=== PATIENT | male | born 1960 | race Caucasian/White ===

== ENCOUNTER 2018-01-17 05:37 | Emergency (ER) | payer SELFPAY ==
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
[2018-01-17] MEDS ORDERED: DIAZEPAM 5 MG TABLET ONE (06:51)
[2018-01-17 07:04] VITALS: BP 160/107; TEMP 98.3; O2SAT 97
== END 2018-01-17 07:00 | disposition home or self-care (01) ==
LOC: ER 05:37
DX: M79.1 Myalgia (principal); V43.52XA Car driver injured in collision with other type car in traffic accident, initial encounter; Y92.410 Unspecified street and highway as the place of occurrence of the external cause; I10 Essential (primary) hypertension
CPT/HCPCS: 99283

== ENCOUNTER 2020-01-21 07:56 | Emergency (ER) | payer SELFPAY ==
--- NOTE | 2020-01-21 09:56 | EDPHYS ---
Physician Documentation [facility] Name: Quincy Hayes Age: 59 yrs Sex: Male : 1960 Arrival Date: 01/21/2020 Time: 07:59 Bed 4 Private MD: None, None ED Physician Kenji Logan HPI: 01/20 08:30 This 59 yrs old Male presents to ER via Ambulatory with complaints of pm1 Headache, Decreased Appetite. 08:30 The patient complains of pain to the forehead. The patient describes the headache as pm1 aching, mild. 08:30 Onset: The symptoms/episode began/occurred 2 day(s) ago. Severity of symptoms: in the pm1 emergency department the pain has resolved. 08:30 Associated signs and symptoms: Pertinent positives: Decreased appetite, chills, pm1 Pertinent negatives: fever, nausea, rash, vomiting, Diarrhea. The symptoms are alleviated by nothing. the symptoms are aggravated by nothing. It is unknown whether or not the patient has recently seen a physician. Patient presents to the ER with complaints of headache, decreased appetite and chills. Patient has had decreased appetite for the past 2 days and reports that he has only eaten 3 eggs in that time frame. This morning he went to [employer] and ate some tortilla soup. Patient reports that he had chills after eating at the restaurant so he came to the ER for the purpose of getting tested for covid 19. Patient reports that his headache has resolved. Historical: - Allergies: 08:12 No Known Allergies; ss - PMHx: 08:12 Hypertension; ADD/ADHD; ss - Immunization history:: Adult Immunizations up to date. - Social history:: Smoking status: Patient denies any tobacco usage or history of. Patient uses street drugs, marijuana, synthetic marijuana . ROS: 08:30 Eyes: Negative for injury, pain, redness, and discharge, ENT: Negative for injury, pm1 pain, and discharge, Neck: Negative for injury, pain, and swelling, Cardiovascular: Negative for chest pain, palpitations, and edema, Respiratory: Negative for shortness of breath, cough, wheezing, and pleuritic chest pain, Abdomen/GI: Negative for abdominal pain, nausea, vomiting, diarrhea, and constipation, Back: Negative for injury and pain, MS/Extremity: Negative for injury and deformity, Skin: Negative for injury, rash, and discoloration. 08:30 Constitutional: Positive for body aches, chills, poor PO intake, Negative for fever. 08:30 Neuro: Positive for headache, Negative for dizziness, gait disturbance, numbness, weakness. Exam: 08:30 Constitutional: This is a well developed, well nourished patient who is awake, alert, pm1 and in no acute distress. Head/Face: Normocephalic, atraumatic. Neck: Trachea midline, no thyromegaly or masses palpated, and no cervical lymphadenopathy. Supple, full range of motion without nuchal rigidity, or vertebral point tenderness. No Meningismus. Chest/axilla: Normal chest wall appearance and motion. Nontender with no deformity. No lesions are appreciated. Cardiovascular: Regular rate and rhythm with a normal S1 and S2. No gallops, murmurs, or rubs. Normal PMI, no JVD. No pulse deficits. Respiratory: Lungs have equal breath sounds bilaterally, clear to auscultation and percussion. No rales, rhonchi or wheezes noted. No increased work of breathing, no retractions or nasal flaring. Abdomen/GI: Soft, non-tender, with normal bowel sounds. No distension or tympany. No guarding or rebound. No evidence of tenderness throughout. Back: No spinal tenderness. No costovertebral tenderness. Full range of motion. Skin: Warm, dry with normal turgor. Normal color with no rashes, no lesions, and no evidence of cellulitis. MS/ Extremity: Pulses equal, no cyanosis. Neurovascular intact. Full, normal range of motion. 08:30 Neuro: Exam negative for acute changes, Orientation: is normal, Motor: is normal, moves all fours. Vital Signs: 08:09 BP 150 / 102; Pulse 82; Resp 18; Temp 98.5(TE); Pulse Ox 99% on R/A; Weight 86.18 kg; ss Height 6 ft. 2 in. (187.96 cm); 08:09 Body Mass Index 24.39 (86.18 kg, 187.96 cm) ss MDM: 08:19 Patient medically screened. pm1 08:28 Data reviewed: vital signs. Data interpreted: Pulse oximetry: on room air is 99 %. pm1 Interpretation: normal. 08:30 ED course: Patient does not want any imaging or labs. He just wants testing for covid pm1 19. 08:36 ED course: Informed that he can go get covid 19 screening at any one of the listed pm1 facilities on our ER flier that lists facilities capable of covid 19 screening in [facility]. I informed him that it would likely be financially cheaper and that I don't get the result for the screen prior to ER disposition. He said that he would like to be screen here regardless. 09:54 Counseling: I had a detailed discussion with the patient and/or guardian regarding: the pm1 historical points, exam findings, and any diagnostic results supporting the discharge/admit diagnosis, lab results, the need for outpatient follow up, to return to the emergency department if symptoms worsen or persist or if there are any questions or concerns that arise at home, Pending covid results. 01/20 08:28 Order name: Flu; Complete Time: 09:54 pm1 01/20 08:28 Order name: COVID-19 pm1 Administered Medications: No medications were administered Disposition: 19:30 Co-signature as Attending Physician, Kenji Logan MD. [email or web address] Disposition: 01/21/20 09:55 Discharged to Home. Impression: Other symptoms and signs concerning food and fluid intake - decreased appetite, Headache. - Condition is Stable. - Discharge Instructions: General Headache Without Cause. - Medication Reconciliation Form, Thank You Letter, Antibiotic Education, Prescription Opioid Use, Work release form form. - Follow up: Emergency Department; When: As needed; Reason: Worsening of condition. Follow up: Private Physician; When: 2 - 3 days; Reason: Recheck today's complaints, Continuance of care, Re-evaluation by your physician. - Problem is new. - Symptoms have improved. Signatures: Dispatcher [employer] EDMS Gracie Cruz RN RN ss Marinas, Patrick, CARMEN SHIRT TRIMMER pm1 Kenji Logan MD MD mh7 Corrections: (The following items were deleted from the chart) 08:39 08:30 The patient describes the headache as aching, mild, pm1 pm1 09:57 09:55 01/21/2020 09:55 Discharged to Home. Impression: Headache. Condition is Stable. pm1 Forms are Medication Reconciliation Form, Thank You Letter, Antibiotic Education, Prescription Opioid Use. Follow up: Emergency Department; When: As needed; Reason: Worsening of condition. Follow up: Private Physician; When: 2 - 3 days; Reason: Recheck today's complaints, Continuance of care, Re-evaluation by your physician. Problem is new. Symptoms have improved. pm1 10:26 09:57 01/21/2020 09:55 Discharged to Home. Impression: Other symptoms and signs ss concerning food and fluid intake - decreased appetiteHeadache. Condition is Stable. Forms are Medication Reconciliation Form, Thank You Letter, Antibiotic Education, Prescription Opioid Use. Follow up: Emergency Department; When: As needed; Reason: Worsening of condition. Follow up: Private Physician; When: 2 - 3 days; Reason: Recheck today's complaints, Continuance of care, Re-evaluation by your physician. Problem is new. Symptoms have improved. pm1
--- NOTE | 2020-01-21 09:56 | ER ---
Nurse's Notes [facility] Name: Quincy Hayes Age: 59 yrs Sex: Male : 1960 Arrival Date: 01/21/2020 Time: 07:59 Bed 4 Private MD: None, None Diagnosis: Headache;Other symptoms and signs concerning food and fluid intake-decreased appetite Presentation: 01/20 08:09 Chief complaint: Patient states: mild headache and decreased appetite that began 2 days ss ago. Denies cough, fever. Coronavirus screen: Proceed with normal triage. Patient denies a cough. Patient denies shortness of breath or difficulty breathing. Patient denies measured and/or subjective temperature greater than 100.4F prior to today's visit. Patient denies travel on a cruise ship or to a country the [facility] currently lists as an affected area. Patient denies contact with known and/or suspected case of COVID-19. Ebola Screen: Patient denies exposure to infectious person. Patient denies travel to an Ebola-affected area in the 21 days before illness onset. Initial Sepsis Screen: Does the patient meet any 2 criteria? No. Patient's initial sepsis screen is negative. Does the patient have a suspected source of infection? No. Patient's initial sepsis screen is negative. Risk Assessment: Do you want to hurt yourself or someone else? Patient reports no desire to harm self or others. Onset of symptoms was January 17, 2020. 08:09 Method Of Arrival: Ambulatory ss 08:09 Acuity: MADHU 4 ss Historical: - Allergies: 08:12 No Known Allergies; ss - PMHx: 08:12 Hypertension; ADD/ADHD; ss - Immunization history:: Adult Immunizations up to date. - Social history:: Smoking status: Patient denies any tobacco usage or history of. Patient uses street drugs, marijuana, synthetic marijuana . Screenin:18 Abuse screen: Denies threats or abuse. Nutritional screening: No deficits noted. tw2 Tuberculosis screening: No symptoms or risk factors identified. Fall Risk None identified. Assessment: 09:00 General: Appears in no apparent distress. comfortable, well developed, Behavior is sv cooperative, appropriate for age. General: Reports decreased appetite for 2 days. Pain: Complains of pain in forehead. Neuro: Level of Consciousness is awake, alert, obeys commands, Oriented to person, place, time, situation, Moves all extremities. Full function Gait is steady, Speech is normal, Reports headache frontal area. Respiratory: Airway is patent Respiratory effort is even, unlabored, Respiratory pattern is regular, symmetrical. Derm: Skin is intact, Skin is pink, warm \T\ dry. 09:01 Reassessment: COVID-19 and flu obtained and sent to lab. sv 10:26 Reassessment: Patient appears in no apparent distress at this time. No changes from previously documented assessment. Patient and/or family updated on plan of care and expected duration. Pain level reassessed. Patient is alert, oriented x 3, equal unlabored respirations, skin warm/dry/pink. 11:15 Reassessment: [facility] 2005 0201. 15:19 Reassessment: Notified patient of Covid results: Not detected. Pt verbalizes ss understanding importance of follow up. Vital Signs: 08:09 BP 150 / 102; Pulse 82; Resp 18; Temp 98.5(TE); Pulse Ox 99% on R/A; Weight 86.18 kg; Height 6 ft. 2 in. (187.96 cm); 08:09 Body Mass Index 24.39 (86.18 kg, 187.96 cm) ED Course: 07:59 Patient arrived in ED. mr 07:59 None, None is Private Physician. mr 08:11 Triage completed. ss 08:12 Arm band placed on right wrist. ss 08:12 Bed in low position. Call light in reach. tw2 08:18 Gennaro Silva [facility]. pm1 08:18 Kenji Logan MD is Attending Physician. pm1 08:47 Haley Yi RN is Primary Nurse. sv 10:26 No provider procedures requiring assistance completed. Patient did not have IV access sv during this emergency room visit. Administered Medications: No medications were administered Outcome: 09:55 Discharge ordered by . pm1 10:26 Patient left the ED. ss 10:26 Discharged to home ambulatory. sv 10:26 Condition: improved 10:26 Discharge instructions given to patient, Instructed on discharge instructions, follow up and referral plans. Demonstrated understanding of instructions, follow-up care. Signatures: Haley Yi RN RN Traci Fuller mr Gracie Cruz RN RN Gennaro Silva NP NAILING MACHINE FEEDER pm1 Naomi Wakefield, RN RN tw2
[2020-01-21 10:31] VITALS: BP 150/102; TEMP 98.5; O2SAT 99
== END 2020-01-21 10:26 | disposition home or self-care (01) ==
LOC: ER 07:56
DX: R51 Headache (principal); R68.89 Other general symptoms and signs; R63.0 Anorexia; Z68.24 Body mass index [BMI] 24.0-24.9, adult; Z20.828 Contact with and (suspected) exposure to other viral communicable diseases
CPT/HCPCS: 87804; 99281; U0002

== ENCOUNTER 2020-01-21 17:54 | Emergency (ER) | payer SELFPAY ==
--- NOTE | 2020-01-21 18:26 | ER ---
Nurse's Notes [facility] Name: Quincy Hayes Age: 59 yrs Sex: Male : 1960 Arrival Date: 01/21/2020 Time: 17:56 Bed Waiting Private MD: Diagnosis: ED Course: 01/20 17:56 Patient arrived in ED. ag5 18:24 Patient's name was called from ER lobby. No response. Unable to locate patient. Will ph disposition as left without being seen by a provider. Administered Medications: No medications were administered Outcome: 18:26 Patient left the ED. ph Signatures: Nickie Pantoja RN RN Mark Aguilera ag5
== END 2020-01-21 18:26 | disposition left against medical advice (07) ==
LOC: ER 17:54
DX: Z02.9 Encounter for administrative examinations, unspecified (principal); Z53.21 Procedure and treatment not carried out due to patient leaving prior to being seen by health care provider